=== PATIENT | female | born 1980 | race Caucasian/White ===

== ENCOUNTER 2018-03-18 | Emergency (ER) | payer OTHER ==
[~2018-03-18] VITALS: Ht 162.6 cm; Wt 67.1 kg
[2018-03-18 00:06] VITALS: Ht 162.6 cm; Wt 67.1 kg
[2018-03-18 01:52] LABS: CALCIUM 8.6 mg/dL (8.5-10.1); CARBON DIOXIDE 31.7 mmol/L (21-32); CHLORIDE SERUM 103 mmol/L (98-107); CREATININE SERUM 0.8 mg/dL (0.6-1.0); GFR1 > 60 mL/min; GLUCOSE SERUM 107 mg/dL (74-106); POTASSIUM SERUM 3.4 mmol/L (3.5-5.1); SODIUM SERUM 138 mmol/L (136-145)
[2018-03-18 01:56] LABS: ALKALINE PHOSPHATASE 98 U/L (46-116); ALT/SGPT 32 U/L (14-59); AMYLASE 67 U/L (25-115); AST/SGOT 18 U/L (15-37); BILIRUBIN TOTAL 0.14 mg/dL (0.20-1.00); LIPASE 122 IU/L (73-393); TOTAL PROTEIN, SERUM 6.5 g/dL (6.4-8.2)
[2018-03-18 01:59] LABS: ALBUMIN 3.2 g/dL (3.4-5.0)
[2018-03-18 02:38] LABS: BASOPHIL % 0.9 % (0-2); PLATELET COUNT 264 x10^3mcL (130-400); RED CELL DISTRIBUTION WIDTH 13.9 % (11.5-14.5)
[2018-03-18 03:30] VITALS: BP 123/79
== END 2018-03-18 03:30 | disposition home or self-care (01) ==
LOC: ED
PROVIDERS: Emergency Medicine
DX: S30.1XXA Contusion of abdominal wall, initial encounter (principal); Z88.2 Allergy status to sulfonamides; Y04.8XXA Assault by other bodily force, initial encounter; Y93.89 Activity, other specified; Y92.89 Other specified places as the place of occurrence of the external cause; Y99.8 Other external cause status
CPT/HCPCS: J1200; J1885; J2765; J3010; J7030; Q9967

== ENCOUNTER 2019-07-02 00:35 | Emergency (ER) | payer OTHER ==
[~2019-07-02] VITALS: Ht 162.6 cm; Wt 73.5 kg
[2019-07-02 00:45] VITALS: Ht 162.6 cm; Wt 73.5 kg
[2019-07-02 03:47] VITALS: BP 102/89
== END 2019-07-02 03:47 | disposition home or self-care (01) ==
LOC: ED 00:35
DX: H92.01 Otalgia, right ear (principal); L53.9 Erythematous condition, unspecified; Z88.2 Allergy status to sulfonamides

== ENCOUNTER 2019-08-17 21:57 | Emergency (ER) | payer OTHER ==
[~2019-08-17] VITALS: Ht 162.6 cm; Wt 71.7 kg
[2019-08-17 22:08] VITALS: BP 139/93; Ht 162.6 cm; Wt 71.7 kg
== END 2019-08-17 23:34 | disposition home or self-care (01) ==
LOC: ED 21:57
DX: N39.0 Urinary tract infection, site not specified (principal); F17.210 Nicotine dependence, cigarettes, uncomplicated; Z71.6 Tobacco abuse counseling; Z98.890 Other specified postprocedural states; Z88.2 Allergy status to sulfonamides
CPT/HCPCS: 87491; 87591; 99406; J0696

== ENCOUNTER 2020-02-15 02:21 | Emergency (ER) | payer OTHER ==
[~2020-02-15] VITALS: Ht 162.6 cm; Wt 79.9 kg
[2020-02-15 02:34] VITALS: BP 164/105; Ht 162.6 cm; Wt 79.9 kg
== END 2020-02-15 03:59 | disposition home or self-care (01) ==
LOC: ED 02:21
DX: A64 Unspecified sexually transmitted disease (principal); N93.9 Abnormal uterine and vaginal bleeding, unspecified; Z88.2 Allergy status to sulfonamides; Z98.890 Other specified postprocedural states
CPT/HCPCS: 87491; 87591; J0696